=== PATIENT | male | born 2000 | race Caucasian/White ===

== ENCOUNTER 2021-10-03 22:40 | Emergency (ER) | payer OTHER ==
[~2021-10-03] VITALS: Ht 195.6 cm; Wt 74.8 kg
[2021-10-03 23:16] VITALS: BP 126/78
[2021-10-03] MEDS ORDERED: TDAP [DIPH/PERTUSSIS/TET] 0.5 ML VIAL IM ONE ×2 (23:30→23:41)
[2021-10-04] MEDS ORDERED: LIDOCAINE /MPF 1% VIAL 5 ML VIAL ONE (00:40)
== END 2021-10-04 01:16 | disposition home or self-care (01) ==
LOC: ER 22:46
DX: S61.411A Laceration without foreign body of right hand, initial encounter (principal); W25.XXXA Contact with sharp glass, initial encounter; Y93.89 Activity, other specified; Y92.89 Other specified places as the place of occurrence of the external cause; Y99.8 Other external cause status
CPT/HCPCS: 12001; 73130; 90471; 90715; 99283; J3490